=== PATIENT | female | born 1950 ===

== ENCOUNTER 2016-09-29 10:50 | Observation (INO) | payer MEDICARE, OTHER ==
[2016-09-29] MEDS ORDERED: ONDANSETRON HCL 4 MG TAB PO ONE (11:19)
[2016-09-29] MEDS ORDERED: KETOROLAC TROMETHAMINE 30 MG/ML SOL IM ONE (11:19)
[2016-09-29] MEDS ORDERED: ONDANSETRON 4 MG ODT ONE (11:26)
[2016-09-29] MEDS ORDERED: KETOROLAC TROMETHAMINE 30 MG/ML SOL ONE (11:26)
[2016-09-29 11:35] LABS: BASOPHILS % (AUTO) 0 % (0-3); EOSINOPHILS % (AUTO) 1 % (0-9); HEMATOCRIT 47 % (35-47); MEAN CORPUSCULAR HGB CONC 34.4 gm/dl (32.0-36.0); MEAN CORPUSCULAR VOLUME 85 fL (81-99); MONOCYTES % (AUTO) 4.2 % (0-12)
[2016-09-29] MEDS: SODIUM CHLORIDE 0.9% FLUSH 10 ML SOL IV PRN ×2 (11:35→13:09)
[2016-09-29] MEDS ORDERED: SODIUM CHLORIDE 0.9% 1000ML 1,000 ML IV ONE (11:45)
[2016-09-29] MEDS ORDERED: KETOROLAC TROMETHAMINE 30 MG/ML SOL IV ONE (11:45)
[2016-09-29 11:49] LABS: ALBUMIN 4.4 gm/dl (3.4-5.0); CALCIUM 9.5 mg/dl (8.5-10.1); POTASSIUM 3.9 mMol/L (3.5-5.1)
[2016-09-29 12:39] LABS: APPEARANCE,URINE Slightly Cloudy; BILIRUBIN,URINE NEGATIVE (NEGATIVE); COLOR,URINE Light yellow; GLUCOSE, URINE (UA) NEGATIVE (NEGATIVE); KETONES,URINE NEGATIVE (NEGATIVE); LEUKOCYTE ESTERASE ,URINE 2+ (NEGATIVE); NITRATE,URINE NEGATIVE (NEGATIVE); OCCULT BLOOD,URINE TRACE LYSED (NEG-TRACE); PH,URINE 6.5; UROBILINOGEN,URINE 0.2 (0.2-1.0 EU)
[2016-09-29 12:53] LABS: WBC,URINE 15-25 (0-5AV/HPF)
[2016-09-29] MEDS ORDERED: METOCLOPRAMIDE HYDROCHLORIDE 5 MG/ML SOL ONE (13:07)
[2016-09-29] MEDS ORDERED: METOCLOPRAMIDE HYDROCHLORIDE 5 MG/ML SOL IV ONE (13:08)
[2016-09-29] MEDS ORDERED: MORPHINE SULFATE 10 MG/ML SOL IV PRN (14:38)
[2016-09-29] MEDS ORDERED: ONDANSETRON HCL 4 MG/2 ML SOL IV PRN (14:38)
[2016-09-29] MEDS ORDERED: KETOROLAC TROMETHAMINE 30 MG/ML SOL IV SCH (14:45)
[2016-09-29] MEDS ORDERED: METOCLOPRAMIDE HYDROCHLORIDE 5 MG/ML SOL IV SCH (14:45)
[2016-09-29] MEDS ORDERED: KETOROLAC TROMETHAMINE 30 MG/ML SOL IV PRN (14:50)
[2016-09-29] MEDS ORDERED: METOCLOPRAMIDE HYDROCHLORIDE 5 MG/ML SOL IV PRN (14:51)
[2016-09-29] MEDS: SODIUM CHLORIDE 0.9% 1000ML 1,000 ML IV SCH ×2 (15:25→23:27)
[2016-09-29] MEDS ORDERED: MECLIZINE HYDROCHLORIDE 12.5 MG TAB PO PRN (16:02)
[2016-09-29] MEDS ORDERED: ONDANSETRON 4 MG ODT PO PRN (16:02)
[2016-09-29] MEDS ORDERED: ALBUTEROL HFA 60 PUFF/INHALER INH PRN (16:02)
[2016-09-29] MEDS: LACTULOSE 10 GM/15 ML SOL PO SCH (21:08)
[2016-09-30] MEDS: LEVOTHYROXINE SODIUM 50 MCG TAB PO SCH (06:28)
[2016-09-30 07:38] LABS: BASOPHILS % (AUTO) 1 % (0-3); EOSINOPHILS % (AUTO) 2 % (0-9); HEMATOCRIT 41 % (35-47); MEAN CORPUSCULAR HGB CONC 34.4 gm/dl (32.0-36.0); MEAN CORPUSCULAR VOLUME 86 fL (81-99); NEUTROPHILS % (AUTO) 64.7 % (37-80)
[2016-09-30] MEDS: SODIUM CHLORIDE 0.9% 1000ML 1,000 ML IV SCH ×2 (07:41→16:31)
[2016-09-30 08:08] LABS: CALCIUM 8.4 mg/dl (8.5-10.1); POTASSIUM 4.3 mMol/L (3.5-5.1)
[2016-09-30] MEDS: PANTOPRAZOLE SODIUM 40 MG ECT PO SCH (10:40)
[2016-09-30] MEDS: MULTIVITAMIN2 1 EA TAB PO SCH (10:40)
[2016-09-30] MEDS: ASPIRIN EC 81 MG PO SCH (10:40)
[2016-09-30] MEDS: LACTULOSE 10 GM/15 ML SOL PO SCH (10:56)
[2016-09-30] MEDS: VALSARTAN 80 MG TAB PO SCH (13:55)
[2016-09-30 16:16] VITALS: O2SAT 97
[2016-10-01] MEDS: SODIUM CHLORIDE 0.9% 1000ML 1,000 ML IV SCH ×2 (00:39→14:21)
[2016-10-01] MEDS: LEVOTHYROXINE SODIUM 50 MCG TAB PO SCH (06:39)
[2016-10-01 07:24] LABS: BASOPHILS % (AUTO) 1 % (0-3); EOSINOPHILS % (AUTO) 4 % (0-9); HEMATOCRIT 39 % (35-47); MEAN CORPUSCULAR HGB CONC 35.2 gm/dl (32.0-36.0); MEAN CORPUSCULAR VOLUME 86 fL (81-99); NEUTROPHILS % (AUTO) 54.8 % (37-80)
[2016-10-01 07:30] LABS: ALBUMIN 3.5 gm/dl (3.4-5.0); CALCIUM 8.1 mg/dl (8.5-10.1); POTASSIUM 3.8 mMol/L (3.5-5.1)
[2016-10-01 08:48] VITALS: RESP 16
[2016-10-01] MEDS: ASPIRIN EC 81 MG PO SCH (08:53)
[2016-10-01] MEDS: MULTIVITAMIN2 1 EA TAB PO SCH (08:53)
[2016-10-01] MEDS: VALSARTAN 80 MG TAB PO SCH (08:53)
[2016-10-01] MEDS: PANTOPRAZOLE SODIUM 40 MG ECT PO SCH (08:53)
[2016-10-01 15:49] VITALS: BP 124/78; PULSE 65; TEMP 98.5
== END 2016-10-01 16:50 | disposition home or self-care (01) | DRG 390 ==
LOC: ED 10:50 → ACUTE CARE 14:22 → UNDOADMOB 14:22 → ACUTE CARE 14:30
PROVIDERS: ADMIT Family Medicine; ATTEND Family Medicine
DX: K56.60 Unspecified intestinal obstruction (principal); I10 Essential (primary) hypertension; K21.9 Gastro-esophageal reflux disease without esophagitis
CPT/HCPCS: 36415; 74020; 74176; 80048; 80053; 81001; 82150; 85025; 96365; 96374; 96375; 99218; 99225; 99284; 99285; J1885; J2270; J2405; J2765

== ENCOUNTER 2016-11-05 20:13 | Emergency (ER) | payer MEDICARE, OTHER ==
[2016-11-05 20:30] VITALS: TEMP 97
[2016-11-05] MEDS ORDERED: DIPHENHYDRAMINE 25 MG CAP PO ONE (21:12)
[2016-11-05] MEDS ORDERED: DIPHENHYDRAMINE 25 MG CAP ONE (21:13)
[2016-11-05 22:13] VITALS: BP 131/67; PULSE 68; RESP 18; O2SAT 98
== END 2016-11-05 22:03 | disposition home or self-care (01) | DRG 153 ==
LOC: ED 20:13
DX: J06.9 Acute upper respiratory infection, unspecified (principal)
CPT/HCPCS: 99282; 99283

== ENCOUNTER 2017-03-26 14:54 | Inpatient (IN) | payer MEDICARE, OTHER ==
[2017-03-26] MEDS ORDERED: SODIUM CHLORIDE 0.9% 1000ML 1,000 ML IV ONE (15:48)
[2017-03-26] MEDS ORDERED: ONDANSETRON HCL 4 MG/2 ML SOL IV PRN (15:48)
[2017-03-26] MEDS: SODIUM CHLORIDE 0.9% FLUSH 10 ML SOL IV SCH (17:11)
[2017-03-26] MEDS ORDERED: ONDANSETRON 4 MG ODT BU PRN (19:37)
[2017-03-26] MEDS: DEXTROSE/SALINE 0.45/KCL 20MEQ 1,000 ML/1,000 ML SOL IV SCH (20:09)
[2017-03-27 01:08] VITALS: O2SAT 95
[2017-03-27] MEDS: SODIUM CHLORIDE 0.9% FLUSH 10 ML SOL IV SCH ×2 (01:08→08:40)
[2017-03-27] MEDS: DEXTROSE/SALINE 0.45/KCL 20MEQ 1,000 ML/1,000 ML SOL IV SCH ×2 (02:55→09:57)
[2017-03-27 07:59] LABS: ALBUMIN 3.2 gm/dl (3.4-5.0); CALCIUM 8.2 mg/dl (8.5-10.1)
[2017-03-27 08:53] VITALS: BP 139/87; PULSE 65; RESP 18; TEMP 98.4
[2017-03-27] MEDS ORDERED: PANTOPRAZOLE SODIUM 40 MG/10 ML PDS IV SCH (09:00)
[2017-03-27] MEDS ORDERED: LATANOPROST 0.005% SOL EACHEYE SCH (21:00)
[2017-03-28] MEDS ORDERED: LEVOTHYROXINE SODIUM 50 MCG TAB PO SCH (07:00)
[2017-03-28] MEDS ORDERED: VALSARTAN 80 MG TAB PO SCH (09:00)
== END 2017-03-27 13:50 | disposition home or self-care (01) | DRG 390 ==
LOC: ACUTE CARE 15:25
PROVIDERS: ADMIT Family Medicine; ATTEND Family Medicine
DX: K56.60 Unspecified intestinal obstruction (principal)
CPT/HCPCS: 36415; 80053

== ENCOUNTER 2018-04-13 12:32 | Inpatient (IN) | payer MEDICARE, OTHER ==
[2018-04-13 13:15] LABS: BASOPHILS % (AUTO) 0 % (0-3); EOSINOPHILS % (AUTO) 2 % (0-9); HEMATOCRIT 46 % (35-47); HEMOGLOBIN 15.5 gm/dl (12.0-15.5); LYMPHOCYTES % (AUTO) 19.1 % (10-50); MEAN CORPUSCULAR HGB CONC 33.3 gm/dl (32.0-36.0); MEAN CORPUSCULAR VOLUME 87 fL (81-99); MONOCYTES % (AUTO) 6.9 % (0-12); NEUTROPHILS % (AUTO) 71.8 % (37-80)
[2018-04-13] MEDS ORDERED: SODIUM CHLORIDE 0.9% FLUSH 10 ML SOL IV PRN (13:15)
[2018-04-13] MEDS: SODIUM CHLORIDE 0.9% 1000ML 1,000 ML IV SCH ×4 (13:15→17:39)
[2018-04-13 13:22] LABS: CALCIUM 9.3 mg/dl (8.5-10.1); CARBON DIOXIDE 21.7 mEq/L (21-32); CREATININE 1.21 mg/dl (0.60-1.00); POTASSIUM 3.8 mMol/L (3.5-5.1)
[2018-04-13] MEDS ORDERED: ONDANSETRON 4 MG ODT PO PRN (15:45)
[2018-04-13] MEDS: SODIUM CHLORIDE 0.9% FLUSH 10 ML SOL IV SCH (16:00)
[2018-04-13] MEDS: LATANOPROST 0.005% SOL EACHEYE SCH (20:14)
[2018-04-13] MEDS ORDERED: OMEPRAZOLE 20 MG CAPSULE PO SCH (21:00)
[2018-04-14] MEDS: SODIUM CHLORIDE 0.9% 1000ML 1,000 ML IV SCH (02:27)
[2018-04-14] MEDS: SODIUM CHLORIDE 0.9% FLUSH 10 ML SOL IV SCH ×4 (06:15→23:23)
[2018-04-14] MEDS: LEVOTHYROXINE SODIUM 50 MCG TAB PO SCH (06:42)
[2018-04-14] MEDS: LOSARTAN POTASSIUM 50 MG TAB PO SCH (09:08)
[2018-04-14] MEDS: PANTOPRAZOLE SODIUM 40 MG ECT PO SCH (09:09)
[2018-04-14] MEDS ORDERED: POTASSIUM CHLORIDE 2 MEQ/ML SOL IV ONE ×2 (09:14→18:54)
[2018-04-14] MEDS: SODIUM CHLORIDE 0.45% 1000 ML 1,000 ML with POTASSIUM CHLORIDE 2 MEQ/ML 20 MEQ IV SCH ×2 (09:20→19:02)
[2018-04-14] MEDS: LATANOPROST 0.005% SOL EACHEYE SCH (20:48)
[2018-04-15] MEDS ORDERED: POTASSIUM CHLORIDE 2 MEQ/ML SOL IV ONE (04:37)
[2018-04-15] MEDS: SODIUM CHLORIDE 0.45% 1000 ML 1,000 ML with POTASSIUM CHLORIDE 2 MEQ/ML 20 MEQ IV SCH (04:41)
[2018-04-15] MEDS: LEVOTHYROXINE SODIUM 50 MCG TAB PO SCH (06:14)
[2018-04-15 07:26] LABS: BASOPHILS % (AUTO) 1 % (0-3); EOSINOPHILS % (AUTO) 5 % (0-9); HEMATOCRIT 40 % (35-47); HEMOGLOBIN 13.4 gm/dl (12.0-15.5); LYMPHOCYTES % (AUTO) 31.7 % (10-50); MEAN CORPUSCULAR HEMOGLOBIN 29.5 pg (27.0-32.0); MEAN CORPUSCULAR HGB CONC 33.5 gm/dl (32.0-36.0); MEAN CORPUSCULAR VOLUME 88 fL (81-99); MONOCYTES % (AUTO) 7.9 % (0-12); NEUTROPHILS % (AUTO) 54.6 % (37-80)
[2018-04-15 07:29] LABS: CALCIUM 8.5 mg/dl (8.5-10.1); CREATININE 0.92 mg/dl (0.60-1.00); POTASSIUM 4.4 mMol/L (3.5-5.1)
[2018-04-15] MEDS: SODIUM CHLORIDE 0.9% FLUSH 10 ML SOL IV SCH ×3 (08:19→20:31)
[2018-04-15] MEDS: LOSARTAN POTASSIUM 50 MG TAB PO SCH (09:58)
[2018-04-15] MEDS: PANTOPRAZOLE SODIUM 40 MG ECT PO SCH (09:58)
[2018-04-15] MEDS: LATANOPROST 0.005% SOL EACHEYE SCH (20:31)
[2018-04-16] MEDS: SODIUM CHLORIDE 0.9% FLUSH 10 ML SOL IV SCH ×3 (00:38→19:16)
[2018-04-16] MEDS: LEVOTHYROXINE SODIUM 50 MCG TAB PO SCH (06:23)
[2018-04-16] MEDS: PANTOPRAZOLE SODIUM 40 MG ECT PO SCH (08:04)
[2018-04-16] MEDS: LOSARTAN POTASSIUM 50 MG TAB PO SCH (08:04)
[2018-04-16] MEDS: ACETAMINOPHEN 325 MG PO PRN (09:02)
[2018-04-16] MEDS: CHOLESTYRAMINE 4 GM PO SCH (10:39)
[2018-04-16] MEDS: LATANOPROST 0.005% SOL EACHEYE SCH (20:42)
[2018-04-17] MEDS: SODIUM CHLORIDE 0.9% FLUSH 10 ML SOL IV SCH (02:03)
[2018-04-17 04:26] VITALS: RESP 20
[2018-04-17] MEDS: ACETAMINOPHEN 325 MG PO PRN (04:26)
[2018-04-17] MEDS: LEVOTHYROXINE SODIUM 50 MCG TAB PO SCH (06:20)
[2018-04-17 07:37] LABS: ALBUMIN 3.8 gm/dl (3.4-5.0); BILIRUBIN,TOTAL 0.3 mg/dl (0.2-1.0); CALCIUM 8.9 mg/dl (8.5-10.1); CARBON DIOXIDE 28.9 mEq/L (21-32); CREATININE 1.02 mg/dl (0.60-1.00); POTASSIUM 3.8 mMol/L (3.5-5.1); TOTAL PROTEIN 7.8 gm/dl (6.4-8.2)
[2018-04-17 08:13] VITALS: BP 143/92; PULSE 74; TEMP 98.1; O2SAT 94
[2018-04-17] MEDS: PANTOPRAZOLE SODIUM 40 MG ECT PO SCH (09:52)
[2018-04-17] MEDS: LOSARTAN POTASSIUM 50 MG TAB PO SCH (09:52)
[2018-04-17] MEDS: CHOLESTYRAMINE 4 GM PO SCH (09:53)
== END 2018-04-17 10:00 | disposition home or self-care (01) | DRG 395 ==
LOC: ED 12:32 → ACUTE CARE 14:29 → UNDOADMIN 14:29 → ACUTE CARE 15:00
PROVIDERS: ADMIT Family Medicine; ATTEND Family Medicine
DX: E84.19 Cystic fibrosis with other intestinal manifestations (principal); K56.609 Unspecified intestinal obstruction, unspecified as to partial versus complete obstruction; E86.0 Dehydration; R10.9 Unspecified abdominal pain; R19.7 Diarrhea, unspecified; I10 Essential (primary) hypertension
CPT/HCPCS: 36415; 74019; 80048; 80053; 85025; 96365; 99222; 99283; J3480; A9270-GY

== ENCOUNTER 2018-11-22 22:12 | Inpatient (IN) | payer MEDICARE, OTHER ==
[2018-11-22] MEDS ORDERED: SODIUM CHLORIDE 0.9% 1000ML 1,000 ML IV ONE (22:25)
[2018-11-22] MEDS ORDERED: HYDROMORPHONE 1 MG/ML SYRINGE IV PRN (22:26)
[2018-11-22] MEDS ORDERED: ONDANSETRON HCL 4 MG/2 ML SOL IV ONE (22:26)
[2018-11-22 22:46] LABS: BASOPHILS % (AUTO) 0 % (0-3); EOSINOPHILS % (AUTO) 3 % (0-9); HEMATOCRIT 41 % (35-47); HEMOGLOBIN 13.7 gm/dl (12.0-15.5); LYMPHOCYTES % (AUTO) 15.8 % (10-50); MEAN CORPUSCULAR HGB CONC 33.4 gm/dl (32.0-36.0); MEAN CORPUSCULAR VOLUME 87 fL (81-99); MONOCYTES % (AUTO) 7.1 % (0-12)
[2018-11-22] MEDS ORDERED: HYDROMORPHONE 1 MG/ML SYRINGE ONE (23:01)
[2018-11-22] MEDS ORDERED: ONDANSETRON HCL 4 MG/2 ML SOL ONE (23:02)
[2018-11-22 23:05] LABS: ALBUMIN 3.2 gm/dl (3.4-5.0); ALKALINE PHOSPHATASE 78 IU/L (46-116); ALT 13 IU/L (14-63); AST 16 IU/L (15-37); BILIRUBIN,TOTAL 0.5 mg/dl (0.2-1.0); BLOOD UREA NITROGEN 13 mg/dl (7-18); CALCIUM 8.9 mg/dl (8.5-10.1); CARBON DIOXIDE 28.4 mEq/L (21-32); CHLORIDE 102 mMol/L (98-107); CREATININE 0.97 mg/dl (0.60-1.00); GLUCOSE 95 mg/dl (74-106); POTASSIUM 3.8 mMol/L (3.5-5.1); SODIUM 138 mMol/L (136-145); TOTAL PROTEIN 7.7 gm/dl (6.4-8.2); TROP I < 0.017 ng/ml (0.000-0.056)
[2018-11-23] MEDS ORDERED: ONDANSETRON HCL 4 MG/2 ML SOL IV PRN (02:56)
[2018-11-23] MEDS: LACTATED RINGERS 1,000 ML IV SCH ×2 (04:03→12:25)
[2018-11-23] MEDS: SODIUM CHLORIDE 0.9% FLUSH 10 ML SOL IV SCH ×3 (04:03→19:43)
[2018-11-23] MEDS ORDERED: ONDANSETRON 4 MG ODT PO PRN (06:57)
[2018-11-23 09:22] LABS: BILIRUBIN,URINE 1+ (NEGATIVE); COLOR,URINE Yellow; GLUCOSE, URINE (UA) NEGATIVE (NEGATIVE); KETONES,URINE 2+ (NEGATIVE); LEUKOCYTE ESTERASE ,URINE TRACE (NEGATIVE); NITRATE,URINE NEGATIVE (NEGATIVE); OCCULT BLOOD,URINE TRACE INTACT (NEG-TRACE); UROBILINOGEN,URINE 0.2 (0.2-1.0 EU)
[2018-11-23 09:24] LABS: APPEARANCE,URINE SL CLOUDY; ICTOTEST,URINE NEG (NEGATIVE)
[2018-11-23 09:26] LABS: BACTERIA TRACE (< 1+); CRYSTALS NEGATIVE (0-3 AVE/HPF)
[2018-11-23] MEDS: PANTOPRAZOLE SODIUM 40 MG/10 ML PDS IV SCH (09:40)
[2018-11-23] MEDS: DEXTROSE/SALINE 0.45/KCL 20MEQ 1,000 ML/1,000 ML SOL IV SCH ×2 (12:29→22:06)
[2018-11-23] MEDS: ENOXAPARIN 40 MG SOL SC SCH (13:02)
[2018-11-23] MEDS: LATANOPROST 0.005% SOL EACHEYE SCH (21:59)
[2018-11-24] MEDS: SODIUM CHLORIDE 0.9% FLUSH 10 ML SOL IV SCH ×4 (05:56→19:22)
[2018-11-24] MEDS: PANTOPRAZOLE SODIUM 40 MG/10 ML PDS IV SCH (09:42)
[2018-11-24] MEDS: DEXTROSE/SALINE 0.45/KCL 20MEQ 1,000 ML/1,000 ML SOL IV SCH ×2 (09:56→19:43)
[2018-11-24] MEDS: ENOXAPARIN 40 MG SOL SC SCH (12:32)
[2018-11-24] MEDS ORDERED: LOSARTAN POTASSIUM 50 MG TAB PO ONE (18:00)
[2018-11-24] MEDS: LATANOPROST 0.005% SOL EACHEYE SCH (21:45)
[2018-11-24] MEDS: ASPIRIN EC 81 MG PO SCH (21:45)
[2018-11-25] MEDS: SODIUM CHLORIDE 0.9% FLUSH 10 ML SOL IV SCH ×3 (03:05→10:22)
[2018-11-25] MEDS: DEXTROSE/SALINE 0.45/KCL 20MEQ 1,000 ML/1,000 ML SOL IV SCH ×2 (05:49→15:56)
[2018-11-25] MEDS: LEVOTHYROXINE SODIUM 50 MCG TAB PO SCH (06:00)
[2018-11-25] MEDS: LOSARTAN POTASSIUM 50 MG TAB PO SCH (08:45)
[2018-11-25] MEDS: PANTOPRAZOLE SODIUM 40 MG/10 ML PDS IV SCH (08:45)
[2018-11-25] MEDS: ENOXAPARIN 40 MG SOL SC SCH (14:18)
[2018-11-25] MEDS: LATANOPROST 0.005% SOL EACHEYE SCH (20:53)
[2018-11-25] MEDS: ASPIRIN EC 81 MG PO SCH (20:53)
[2018-11-26] MEDS: SODIUM CHLORIDE 0.9% FLUSH 10 ML SOL IV SCH ×3 (00:01→09:01)
[2018-11-26] MEDS: DEXTROSE/SALINE 0.45/KCL 20MEQ 1,000 ML/1,000 ML SOL IV SCH (01:33)
[2018-11-26] MEDS: LEVOTHYROXINE SODIUM 50 MCG TAB PO SCH (06:07)
[2018-11-26 07:35] LABS: BASOPHILS % (AUTO) 1 % (0-3); EOSINOPHILS % (AUTO) 7 % (0-9); HEMATOCRIT 44 % (35-47); HEMOGLOBIN 13.7 gm/dl (12.0-15.5); LYMPHOCYTES % (AUTO) 29.2 % (10-50); MEAN CORPUSCULAR HEMOGLOBIN 28.2 pg (27.0-32.0); MEAN CORPUSCULAR HGB CONC 31.4 gm/dl (32.0-36.0); MEAN CORPUSCULAR VOLUME 90 fL (81-99); MONOCYTES % (AUTO) 10.7 % (0-12); NEUTROPHILS % (AUTO) 52.5 % (37-80)
[2018-11-26 08:17] VITALS: BP 112/74; PULSE 81; RESP 16; TEMP 97.2; O2SAT 96
[2018-11-26] MEDS ORDERED: ACETAMINOPHEN 500 MG 500 MG TAB PO PRN (08:56)
[2018-11-26] MEDS: LOSARTAN POTASSIUM 50 MG TAB PO SCH (09:00)
[2018-11-26] MEDS: PANTOPRAZOLE SODIUM 40 MG/10 ML PDS IV SCH (09:00)
[2018-11-26 15:16] LABS: CREATININE 0.95 mg/dl (0.60-1.00); POTASSIUM 3.8 mMol/L (3.5-5.1)
== END 2018-11-26 10:00 | disposition home or self-care (01) | DRG 390 ==
LOC: ED 22:12 → ACUTE CARE 11-23 00:44
PROVIDERS: ADMIT Internal Medicine; ATTEND Family Medicine
DX: K56.51 Intestinal adhesions [bands], with partial obstruction (principal); R10.9 Unspecified abdominal pain
CPT/HCPCS: 36415; 74176; 80048; 80053; 81001; 84484; 85025; 87088; 87205; 93005; 96365; 96374; 96375; 99222; 99284; J1650; J2405; A6232; A9270-GY; J1170